=== PATIENT | male | born 1970 | race Caucasian/White ===

== ENCOUNTER 2023-03-15 21:10 | Emergency (ER) | payer OTHER ==
[~2023-03-15] VITALS: Ht 188 cm; Wt 114.6 kg
[2023-03-15] MEDS ORDERED: TADA5TAB PO (22:19)
[2023-03-15 23:44] VITALS: BP 128/78
== END 2023-03-15 23:45 | disposition home or self-care (01) ==
LOC: M ED 21:10 → EDBD 21:10 → M ED 23:45
DX: M54.2 Cervicalgia (principal); V43.52XA Car driver injured in collision with other type car in traffic accident, initial encounter